=== PATIENT | male | born 1970 | race Two or more races ===

== ENCOUNTER 2017-03-02 16:00 | Outpatient (CLI) | payer BC ==
--- NOTE | 2017-03-02 17:30 | Diagnostic Imaging Report ---
Indication: PAIN Technique: 2 views of the chest Comparison: none. Findings: Lungs and pleural spaces are clear. Heart size is normal. Bones are unremarkable except for mild thoracic scoliotic deformity. Impression: No acute process
== END 2017-03-02 18:00 | disposition home or self-care (01) ==
LOC: RAD 16:00
DX: R07.81 Pleurodynia (principal)
CPT/HCPCS: 71020